=== PATIENT | male | born 1985 | race Caucasian/White ===

== ENCOUNTER 2017-04-17 18:57 | Emergency (ER) | payer SELFPAY ==
[2017-04-17 19:05] VITALS: BP 127/57
--- NOTE | 2017-04-17 19:55 | ERNOTE ---
Integumentary HPI - Narrative Date of Service: 04/17/17 - General Time Seen by Provider: 04/17/17 19:10 - Immun/Allergies/Home Medications Immunizations: IMMUNIZATION HX Immunizations Up to Date Yes History of Influenza Vaccine No Hx Pneumococcal Vaccination No Allergies/Adverse Reactions: Allergies Allergy/AdvReac Type Severity Reaction Status Date / Time No Known Allergies Allergy Verified 04/17/17 19:02 Home Medications: HOME MEDICATIONS NK [No Home Medication] 08/03/13 [Last Taken Unknown] - History of Present Illness Narrative: Pt. comes in with c/o rash on his L hand and R wrist for two days. Pt. denies any SOB, CP, swelling, fever, rhinorrhea, sore throat, any pain but states that the rash itches. Pt. denies any alleviating factors, aggravating factors, or prehospital treatment. Review of Systems - Review of Systems Constitutional: Present: no symptoms reported EYE: Present: no symptoms reported ENT: Present: no symptoms reported Respiratory: Present: no symptoms reported. Absent: shortness of breath, cough , wheezing Cardiology: Present: no symptoms reported. Absent: chest pain, palpitations, edema Musculoskeletal: Present: no symptoms reported. Absent: back pain, joint pain Skin: Present: rash Neurological: Present: no symptoms reported. Absent: headache, dizziness/light- headedness, numbness, tingling All Other Systems: All systems neg except as marked - Patient's Past Medical History Patient History - Medical: No pertinent hx Patient History - Cardiac/Respiratory: No pertinent hx Patient History - Cancer: No Hx of Cancer Patient History - Surgical Procedures: No surgical history Patient History - Other: None - Family History Father Family History - Medical: Diabetes Type 2 Insulin Dependent Family History - Cardiac/Respiratory: No pertinent hx Family History - Cancer: No pertinent family hx - Social History Living Situations: home Abuse History: No History of abuse Psych History: No pertinent hx Smoking Status: Never smoker Have you smoked in the past 12 months: No Do you dip or chew tobacco: No Patient requests Smoking Cessation Consult: No Initiate information on Smoking Cessation: No Alcohol Use: none Drug Use: none - Immunizations Immunizations Up to Date: Yes Hx Pneumococcal Vaccination: No History of Influenza Vaccine: No Physical Exam - Physical Exam General Appearance: Present: wd/wn, alert, no apparent distress Head Exam: Present: normal inspection, no evidence of injury Eye Exam: Normal inspection: bilateral, PERRL: bilateral, EOMI: bilateral Ears, Nose, Throat: Present: normal ENT inspection, normal pharynx Respiratory: Present: no respiratory distress, normal breath sounds, no accessory muscle use, chest nontender, lungs clear Cardiovascular/Chest: Present: regular rate, rhythm, no murmur, normal peripheral pulses Extremity Exam: Present: non-tender, normal range of motion, no edema Neurological Exam: Present: alert, oriented, normal mood/affect, no motor/ sensory deficits Skin Exam: Present: normal color, warm/dry, other - two small insect bites L hand and Three on R wrist with mild erythema no edema and healing ED Progress - Vital Signs Patient's Vital Signs:: I have reviewed the patient's vital signs. Vital Signs: Vital Signs 04/17/17 19:02 Temperature 37.1 C Pulse Rate 76 Respiratory 14 Rate Blood Pressure 127/57 O2 Sat by Pulse 99 Oximetry - Progress/Reassessment Chief Complaint: Rash Departure Clinical Impression: Chigger bites - Departure Disposition: Home self-care Condition: Good Instructions: Insect Bite Additional Instructions: Please follow up with primary provider in 2-3 days if not improved please take 50 mg Benedryl then take 25 mg every six hours after.
== END 2017-04-17 19:22 | disposition home or self-care (01) ==
LOC: ER 18:57
DX: B88.0 Other acariasis (principal)

== ENCOUNTER 2017-10-21 06:52 | Emergency (ER) | payer SELFPAY ==
[2017-10-21 06:58] VITALS: BP 133/70
--- NOTE | 2017-10-21 07:10 | ERNOTE ---
Medical Problem HPI - Narrative Date of Service: 10/21/17 - General Chief Complaint: Fever Time Seen by Provider: 10/21/17 07:01 Source: patient Exam Limitations: no limitations - Immun/Allergies/Home Medications Immunizations: IMMUNIZATION HX Immunizations Up to Date Yes History of Influenza Vaccine No Hx Pneumococcal Vaccination No Allergies/Adverse Reactions: Allergies No Known Allergies Allergy (Verified 10/21/17 06:58) Home Medications: HOME MEDICATIONS Doxycycline Hyclate [Vibratab] 100 mg PO BID #20 tab 10/21/17 [Last Taken Unknown] - History of Present History Narrative: c/o fever and sinus pain Timing: constant, getting worse Severity: moderate Modifying Factors - (Improves): Present: other - nothing Modifying Factors - (Worsens): Present: other - nothing Review of Systems - Narrative Narrative: unremarkable - Review of Systems Constitutional: Present: See HPI, weakness, fatigue, malaise EYE: Present: no symptoms reported ENT: Present: See HPI, nose pain, nose congestion, nasal drainage, other - left sinus pain Respiratory: Present: no symptoms reported Cardiology: Present: no symptoms reported Gastrointestinal/Abdominal: Present: no symptoms reported Genitourinary: Present: no symptoms reported Musculoskeletal: Present: no symptoms reported Skin: Present: no symptoms reported Neurological: Present: no symptoms reported Endocrine: Present: no symptoms reported Hematologic/Lymphatic: Present: no symptoms reported - Narrative Narrative: unremarkable - Patient's Past Medical History Patient History - Medical: No pertinent hx Patient History - Cardiac/Respiratory: No pertinent hx Patient History - Cancer: No Hx of Cancer Patient History - Surgical Procedures: No surgical history Patient History - Other: None - Family History Father Family History - Medical: Diabetes Type 2 Insulin Dependent Family History - Cardiac/Respiratory: No pertinent hx Family History - Cancer: No pertinent family hx - Social History Living Situations: home Abuse History: No History of abuse Psych History: No pertinent hx Does anyone smoke in the home?: No Smoking Status: Never smoker Have you smoked in the past 12 months: No Do you dip or chew tobacco: No Patient requests Smoking Cessation Consult: No Initiate information on Smoking Cessation: No Alcohol Use: none Drug Use: none - Immunizations Immunizations Up to Date: Yes Hx Pneumococcal Vaccination: No History of Influenza Vaccine: No Physical Exam - Physical Exam General Appearance: Present: mild distress, anxious Head Exam: Present: normal inspection, no evidence of injury Eye Exam: Normal inspection: bilateral, PERRL: bilateral, EOMI: bilateral Ears, Nose, Throat: Present: nasal congestion, sinus pain/drainage Neck: Present: normal inspection, nontender Respiratory: Present: no respiratory distress, normal breath sounds, no accessory muscle use, chest nontender, lungs clear Cardiovascular/Chest: Present: regular rate, rhythm, no murmur, normal peripheral pulses Gastrointestinal/Abdominal: Present: normal bowel sounds, nontender, nondistended, soft, no organomegaly Back Exam: Present: normal inspection, normal range of motion, no CVA tenderness , no vertebral tenderness Extremity Exam: Present: normal inspection, non-tender Neurological Exam: Present: alert, oriented, normal mood/affect, no motor/ sensory deficits Skin Exam: Present: normal color, warm/dry Lymphatic Exam: Present: no adenopathy ED Progress - Date and Time Seen: Date and Time: 10/21/17 07:07 unchanged - Vital Signs Patient's Vital Signs:: I have reviewed the patient's vital signs. Vital Signs: Vital Signs 10/21/17 06:55 Temperature 39.3 C H Pulse Rate 117 H Respiratory 12 Rate Blood Pressure 133/70 O2 Sat by Pulse 99 Oximetry - Progress/Reassessment Chief Complaint: Fever Progress:: Unchanged - Transfer of Care Expected Disposition: Discharge Plan - Plan Plan: to be discharged Departure Clinical Impression: Sinusitis, acute - Departure Disposition: Home Follow Up Needed Condition: Fair Instructions: Sinusitis, Adult, Dvol-my-Olxy Prescriptions: Doxycycline Hyclate [Vibratab] 100 mg PO BID #20 tab
== END 2017-10-21 07:15 | disposition home or self-care (01) ==
LOC: ER 06:52
DX: J01.90 Acute sinusitis, unspecified